=== PATIENT | male | born 1930 | race Caucasian/White ===

== ENCOUNTER 2017-05-13 14:08 | Inpatient (IN) ==
[2017-05-13] MEDS ORDERED: ZOFRAN IV PRN (14:37)
--- NOTE | 2017-05-13 14:47 | Diag Imaging Result Doc PS360 ---
EXAM: CHEST-2 VIEWS INDICATION: dyspnea TECHNIQUE: 2 views COMPARISON: 05/26/2014 FINDINGS: The lungs are grossly clear. There is no discrete pleural fluid collection or pneumothorax. The cardiomediastinal silhouette and central vasculature are grossly unremarkable. IMPRESSION: No evidence of acute pathology by plain radiograph. Electronically signed by Jethro Bhagat 05/13/2017 2:45 PM
[2017-05-13 14:52] LABS: MANUAL DIFF NEEDED? NO
[2017-05-13 14:56] LABS: BASO% 0.1 % (0.0-0.8); EOS# 0.01 X1000 (0.0-0.7); EOS% 0.1 % (0.0-10.0); HEMATOCRIT 39.5 % (42.0-52.0); HEMOGLOBIN 13.9 g/dL (14.0-18.0); IMM GRAN# 0.01 X1000 (0.0-0.04); IMM GRAN% 0.1 % (0.0-0.5); LYMPH# 1.18 X1000 (1.2-3.4); LYMPH% 10.5 % (20.5-51.1); MCH 30.3 PG (27-31); MCHC 35.2 g/dL (33-37); MCV 86.1 FL (81-99); MONO# 0.99 X1000 (0.11-0.59); MONO% 8.8 % (1.7-9.3); MPV 11.1 FL (7.4-10.4); NEUT% 80.4 % (42.2-75.2); PLT 181 X1000 (130-400); RBC 4.59 XMIL (4.7-6.1)
[2017-05-13] MEDS ORDERED: SODIUM CHLORIDE 0.9% INJ SCH (15:00)
[2017-05-13 15:20] LABS: AGAP 12; ALBUMIN 4.4 g/dL (3.5-5.0); ALKALINE PHOSPHATASE 120 U/L (32-122); BUN 11 mg/dL (8-22); CALCIUM 9.8 mg/dL (8.8-10.2); CHLORIDE 98 mmol/L (98-107); COSMO 271; GOT 14 U/L (10-34); GPT 10 U/L (10-44); POTASSIUM 3.7 mmol/L (3.5-5.1); SODIUM 135 mmol/L (136-145); TCO2 25 mmol/L (25-35); TOTAL PROTEIN 7.8 g/dL (6.3-8.3)
[2017-05-13] MEDS: PROTONIX IV SCH (16:24)
[2017-05-13] MEDS: NS 1,000 ML IV SCH (16:24)
[2017-05-13] MEDS ORDERED: TYLENOL PO PRN (16:32)
--- NOTE | 2017-05-13 17:02 | HISTORY AND PHYSICAL ---
CHIEF COMPLAINT: Extreme weakness and vomiting. PRESENT ILLNESS: This is the 1st recent [facility] admission for this 86-year-old white man who presented to the office this morning with history of vomiting since 4 a.m. today. He had no nausea prior to that time. He has had no fever, and his has not had nausea or abdominal discomfort. He denied eating unusual type of food last night or eating out. Family also indicated that he has had some progressive memory problems and also insomnia. There is significance of at least 35 pound weight loss over the last 6 months. He had lumbar back surgery a couple of months ago after conservative treatment failed. He was given the option of treating the gastritis symptoms at home and calling tomorrow to see if he was improved to determine hospitalization. After returning home, the family had a discussion with the patient and decision was made to put him in the hospital for evaluation and control the nausea. PAST MEDICAL HISTORY: Recent lumbar back surgery. PRESENT MEDICATIONS: Gabapentin 300 mg at bedtime, metoclopramide 10 mg t.i.d., ropinirole 1 at bedtime. ALLERGIES: Celebrex. REVIEW OF SYSTEMS: Significant for weight loss and anorexia. He has had no significant cough or shortness of breath. He has had no melena, no hemoptysis, and no hematemesis. SOCIAL HISTORY: No recent smoking or alcohol usage. He lives at home with his . FAMILY HISTORY: Unremarkable except for some hypertension. PHYSICAL EXAMINATION: VITAL SIGNS: Temperature 98.6 degrees, rate 87, respirations 16, blood pressure 157/68, O2 saturation on room air 100%. GENERAL: He seems to be feeling a little better now than in the office after a short nap. He denies nausea. He has taken some liquids p.o. without vomiting. HEENT: Pupils equal, round, and reactive to light. Pharynx benign with no erythema or exudate. NECK: Supple with no mass or lymphadenopathy. HEART: Regular in rate and rhythm with no murmur, rub or gallop. LUNGS: Clear with no rales or rhonchi. ABDOMEN: Soft with no mass, tenderness, or organomegaly. EXTREMITIES: No cyanosis, clubbing, or edema. There is a lumbar scar secondary to recent surgery. RECTAL AND GENITALIA: Deferred. IMPRESSION: Acute gastritis, moderate recent weight loss of undetermined etiology. PLAN: Admit for control of nausea and for workup of weight loss. cc: Aston Irving MD
--- NOTE | 2017-05-13 19:00 | Diag Imaging Result Doc PS360 ---
EXAM: CT ABD/PELVIS W/PO AND IV CON HISTORY: weightloss TECHNIQUE: CT abdomen and pelvis with intravenous contrast. Dose reduction protocol. COMPARISON: 05/26/2014 FINDINGS: There is a large amount of motion throughout the exam blurring the images. The gallbladder is distended. No calcified stones. There are small scattered hepatic cysts. Normal spleen, pancreas, and adrenal glands. There are small scattered renal cysts. No hydronephrosis. Prominent atherosclerosis. No aneurysmal dilatation to the aorta. No bowel obstruction. No inflammation about the cecum. No abscess. The urinary bladder is moderately distended and appears normal. There has been extensive surgery to the lower lumbar spine. IMPRESSION: Suboptimal exam due to patient motion. 1. There are scattered hepatic and renal cysts 2. Prominent atherosclerosis Electronically signed by Moshe Hsu 05/13/2017 6:58 PM
[2017-05-13] MEDS ORDERED: SEROQUEL PO SCH (21:00)
[2017-05-14] MEDS: NS 1,000 ML IV SCH ×2 (05:14→11:42)
--- NOTE | 2017-05-14 08:39 | PROGRESS NOTE ---
DATE: 05/14/2017 OBJECTIVE: Vital Signs: Stable with temperature 98.8 degrees, rate 105, respirations 18, blood pressure 110/47, O2 saturation on room air 100%. DIAGNOSTIC DATA: CT scan of his abdomen with and without contrast revealed some hepatic and renal cysts. Otherwise unremarkable. There was some motion interference with reading, but not significant. He had a bladder scan this morning revealing 200 mL residual. A Gill was planned, but canceled. SUBJECTIVE: He has had no further vomiting. ASSESSMENT AND PLAN: Diet will be increased. Activity will be increased. If he continues to have difficulty voiding, a Gill will be placed. If he does well before this afternoon, he may be able to go home today. cc: Aston Irving MD
[2017-05-14 12:03] LABS: URINE SOURCE VOIDED
[2017-05-14 12:13] LABS: BILIRUBIN URINE NEGATIVE (NEGATIVE); BLOOD URINE TRACE (NEGATIVE); CLARITY CLEAR (CLEAR); COLOR YELLOW; GLUCOSE URINE NEGATIVE (NEGATIVE); LEUKOCYTES URINE TRACE (NEGATIVE); NITRITE URINE NEGATIVE (NEGATIVE); PH URINE 6.5; PROTEIN URINE 1+(30 mg/dL) mg/dL (NEGATIVE); SP GRAVITY URINE 1.005; URINE MICROSCOPIC NEEDED? YES; UROBILINOGEN URINE NORMAL
[2017-05-14 12:27] LABS: URINE EPITHELIAL CELLS <10 /HPF (<10)
[2017-05-14] MEDS: PROTONIX IV SCH (15:37)
[2017-05-14 16:05] VITALS: BP 133/57
[2017-05-14] MEDS ORDERED: MACROBID PO SCH (21:00)
--- NOTE | 2017-05-15 08:35 | DISCHARGE SUMMARY ---
ADMISSION DATE: 05/13/2017 DISCHARGE DATE: 05/14/2017 FINAL DIAGNOSES: 1. Acute gastritis. 2. Acute cystitis. 3. Weight loss related to chronic back pain and other factors. DISCHARGE MEDICATIONS: Macrobid 100 mg (20) 1 b.i.d., Seroquel 50 mg (14) 1 at bedtime for sleep, and usual medications including ropinirole, Tylenol, and p.o. Zofran p.r.n. This is the first recent [facility] admission for this 86-year-old white man with weight loss of about 35 pounds in 6 months who had recent back surgery. He presented to the office with nausea and vomiting. There was no hematemesis, and no history of melena. INITIAL LABORATORY: Hemoglobin 13.9, hematocrit 39.5. White blood count 11,200, with 80% neutrophils. Sodium 135, potassium 3.7, BUN 11, creatinine 0.6, glucose 130. TSH 1.38. Liver functions normal. HOSPITAL COURSE: He was given IV Zofran with benefit and nausea resolved by the day after admission. Diet was increased. He had some oliguria initially, but was able to go to the bathroom this afternoon. He states he does not have urinary hesitancy. He continues to have suprapubic abdominal pain, otherwise no complaints. He has been ambulatory this afternoon. He is discharged home on the above medications to be seen in the office in 1 week for followup. cc: Aston Irving MD
== END 2017-05-14 17:37 | disposition home or self-care (01) ==
LOC: P.DIRADM 14:08 → P.MEDSURG 14:16
PROVIDERS: ADMIT Family Medicine; ATTEND Family Medicine

== ENCOUNTER 2017-05-18 15:23 | Inpatient (IN) ==
[2017-05-18] MEDS ORDERED: PROZAC PO ONE (16:53)
[2017-05-18 16:55] LABS: MANUAL DIFF NEEDED? NO
[2017-05-18 17:01] LABS: BASO% 0.3 % (0.0-0.8); EOS# 0.16 X1000 (0.0-0.7); HEMATOCRIT 34.9 % (42.0-52.0); HEMOGLOBIN 12.6 g/dL (14.0-18.0); IMM GRAN# 0.05 X1000 (0.0-0.04); IMM GRAN% 0.6 % (0.0-0.5); LYMPH# 0.42 X1000 (1.2-3.4); LYMPH% 5.3 % (20.5-51.1); MCH 30.5 PG (27-31); MCHC 36.1 g/dL (33-37); MCV 84.5 FL (81-99); MONO# 0.65 X1000 (0.11-0.59); MONO% 8.2 % (1.7-9.3); MPV 10.9 FL (7.4-10.4); NEUT% 83.6 % (42.2-75.2); PLT 140 X1000 (130-400); RBC 4.13 XMIL (4.7-6.1)
[2017-05-18 17:10] LABS: AGAP 12; BUN 10 mg/dL (8-22); CALCIUM 8.9 mg/dL (8.8-10.2); CHLORIDE 94 mmol/L (98-107); COSMO 258; POTASSIUM 2.9 mmol/L (3.5-5.1); SODIUM 129 mmol/L (136-145); TCO2 23 mmol/L (25-35)
[2017-05-18] MEDS: D5 1/2 NS 1,000 ML IV SCH (18:10)
[2017-05-18] MEDS: SOLU-MEDROL IV SCH (18:10)
[2017-05-18] MEDS: TYLENOL PO PRN (18:10)
[2017-05-18 18:28] LABS: CLARITY CLEAR (CLEAR); COLOR AMBER; URINE SOURCE VOIDED
[2017-05-18 18:29] LABS: BILIRUBIN URINE NEGATIVE (NEGATIVE); BLOOD URINE NEGATIVE (NEGATIVE); GLUCOSE URINE NEGATIVE (NEGATIVE); LEUKOCYTES URINE TRACE (NEGATIVE); NITRITE URINE NEGATIVE (NEGATIVE); PH URINE 6.5; PROTEIN URINE 2+(100 mg/dL) mg/dL (NEGATIVE); URINE CAST GRANULAR PRESENT /LPF; URINE CRYSTAL NONE SEEN /HPF; URINE EPITHELIAL CELLS >10 /HPF (<10); URINE MICROSCOPIC NEEDED? YES; URINE RBC <10 /HPF (<10); URINE WBC <10 /HPF (<10); UROBILINOGEN URINE 1+(1 mg/dL)
[2017-05-18] MEDS: POTASSIUM CHLORIDE 20 MEQ/SWI 20 MEQ/100 ML IVPB IV SCH ×2 (19:49→21:44)
--- NOTE | 2017-05-18 20:51 | HISTORY AND PHYSICAL ---
CHIEF COMPLAINT: Extreme weakness, anorexia. PRESENT ILLNESS: This is the second recent [facility] admission for this 86-year-old white man, who was admitted to [facility] 05/13 to 05/14 with final diagnoses acute gastritis, acute cystitis, and weight loss due to chronic back pain and other factors. He was discharged home with Macrobid, Seroquel at bedtime and usual medications, including ropinirole, Tylenol and Zofran p.r.n. Initial laboratory during that admission was BUN of 11, creatinine 0.6, glucose 130, TSH 1.38. Liver enzymes were normal. Hematocrit was 39.5. White blood count 11,200. He was found to have 10-15 WBCs per high-powered field and started on Macrobid p.o. He became progressively weaker over the past few days. He has not been eating, drinking, and urine output has been decreasing. Urine output on 05/16 was 18 ounces, on 05/17, 29 ounces and by midday today 6 ounces. He denies nausea, but is unable to eat. There is no trouble swallowing. Affect is somewhat depressed. Option was given for him to go home with medicine or be placed in the hospital. He chose hospitalization. He was too weak to stand without assistance. PAST MEDICAL HISTORY: Fairly recent lumbar back surgery. He has had no subsequent radiculopathy and back pain is improved. PRESENT MEDICATIONS: As above. ALLERGIES: Celebrex. REVIEW OF SYSTEMS: Additional weight loss of 4 pounds since his last admission. The 02/25, he weighed 135 pounds. He weighs 116 today. He weighed 160 pounds a few months ago. He has had no hematochezia or melena. Chest x-ray during his most recent admission showed no infiltrate. CT scan of his abdomen revealed no mass. SOCIAL HISTORY: Lives with his . He denies recent smoking or alcohol usage. PHYSICAL EXAMINATION: VITAL SIGNS: Temperature 99.1 degrees, heart rate 106, respirations 18, blood pressure 151/64, O2 saturation 99% on room air. Height 5 feet 5 inches, weight on hospital scale was 124. GENERAL: Patient is a weak elderly white man with general malaise. There is mild depressed affect. HEENT: Pupils equal, round, and reactive to light. Tympanic membranes without inflammation. Pharynx benign with no erythema or exudate. NECK: Supple with no mass or lymphadenopathy. HEART: Regular in rate and rhythm with no murmur, rub or gallop. LUNGS: Clear with no rales or rhonchi. ABDOMEN: Soft with no mass, tenderness, or organomegaly. EXTREMITIES: No cyanosis, clubbing, or edema. RECTAL: In the office revealed normal-sized prostate without mass. Hemoccult was negative. IMPRESSION: Dehydration, anorexia, hyponatremia, hypokalemia, depression, extreme weakness with inability to walk. PLAN: Admit for further evaluation and treatment. Physical therapy will be asked to assist in ambulation. He may need rehab at discharge. cc: Aston Irving MD
[2017-05-18] MEDS: MEGACE PO SCH (21:29)
[2017-05-19] MEDS: D5 1/2 NS 1,000 ML IV SCH ×3 (00:50→14:21)
[2017-05-19] MEDS: SOLU-MEDROL IV SCH ×2 (04:09→16:26)
[2017-05-19] MEDS: PROZAC PO SCH (08:44)
[2017-05-19] MEDS: MEGACE PO SCH ×2 (08:44→21:10)
[2017-05-19] MEDS: KLOR-CON PO SCH ×3 (08:44→16:25)
[2017-05-19] MEDS: TYLENOL PO PRN (08:47)
--- NOTE | 2017-05-19 09:48 | Diag Imaging Result Doc PS360 ---
EXAM: CHEST-PORTABLE HISTORY: fever, dyspnea TECHNIQUE: Single view of the chest was performed portably. COMPARISON: 05/13/2017 FINDINGS: The cardiomediastinal silhouette is within normal limits. The pulmonary vasculature is not congested. No infiltrate, effusion, or pneumothorax is appreciated. IMPRESSION: No acute cardiopulmonary abnormality is identified. Electronically signed by Tiffanie Burns 05/19/2017 9:46 AM
[2017-05-19] MEDS: NS 1,000 ML IV SCH (18:25)
[2017-05-19] MEDS ORDERED: ATIVAN PO SCH (21:00)
[2017-05-20] MEDS: SOLU-MEDROL IV SCH ×2 (05:01→17:44)
[2017-05-20 06:16] LABS: AGAP 11; BUN 9 mg/dL (8-22); CHLORIDE 99 mmol/L (98-107); COSMO 263; POTASSIUM 3.3 mmol/L (3.5-5.1); SODIUM 131 mmol/L (136-145); TCO2 21 mmol/L (25-35)
[2017-05-20] MEDS: MEGACE PO SCH (08:15)
[2017-05-20] MEDS: PROZAC PO SCH (08:15)
[2017-05-20] MEDS: NS 1,000 ML IV SCH (08:15)
[2017-05-20] MEDS: KLOR-CON PO SCH ×3 (08:16→17:43)
[2017-05-20] MEDS: POTASSIUM CHLORIDE 20 MEQ/SWI 20 MEQ/100 ML IVPB IV SCH ×2 (08:35→11:11)
--- NOTE | 2017-05-20 08:44 | PROGRESS NOTE ---
DATE: 05/20/2017 VITAL SIGNS: Stable with temperature 97.6 degrees, heart rate 87, respirations 18, blood pressure 153/67, O2 saturation on room air is 99%. LABORATORY: Sodium 131, potassium 3.3, BUN 9, creatinine 0.4, glucose 122, calcium 8. SUBJECTIVE: Patient slept well last night and is eating fairly well. He ambulated last night to the nurses' desk and has ambulated with physical therapy. IMPRESSION AND PLAN: He is wanting to go home but may need rehab for strengthening to prevent recurrent hospitalization. Discussion will be made with the family this evening and decision made for home versus rehab tomorrow. cc: Aston Irving MD
[2017-05-20] MEDS ORDERED: VITAMIN D PO SCH (09:00)
[2017-05-20 16:14] VITALS: BP 156/64
--- NOTE | 2017-05-20 18:14 | DISCHARGE SUMMARY ---
ADMISSION DATE: 05/18/2017 DISCHARGE DATE: 05/20/2017 FINAL DIAGNOSES: Dehydration, anorexia, extreme weakness, hyponatremia, hypokalemia, depression. DISCHARGE MEDICATION: Lorazepam 1 mg at bedtime for sleep, Megace 40 mg b.i.d. for appetite, fluoxetine 20 mg 1 daily, vitamin D 3 2000 units daily, and Tylenol p.r.n. pain. HISTORY: This is the second fairly recent admission for this 86-year-old white man, who had been admitted for gastritis and cystitis sent home with nitrofurantoin. Urinalysis on admission revealed less than 10 WBCs per high-powered field. Urine culture revealed no growth. Vitamin D 25 hydroxy level was low at 16.6. Testosterone level was normal. Sodium was low at 129. Potassium 2.9. BUN 10. Creatinine 0.4, glucose 102, calcium 8.9, amylase 30. HOSPITAL COURSE: He was hydrated and given Megace, and fluoxetine. There seemed to be improvement over a couple of days and appetite improved, except he did not eat much supper this evening because of not liking the hospital food. He has been ambulatory the last couple of days and feeling better. Discussion was made with the patient and family concerning rehab, but the patient desired to go home. DISPOSITION: He is discharged home on the above medications with home health to be seen back in the home health nursing care. FOLLOWUP: He is to be seen back in the office in 1 week for followup. cc: Aston Irving MD
== END 2017-05-20 18:52 | disposition home health service (06) ==
LOC: P.DIRADM 15:23 → P.MEDSURG 15:28
PROVIDERS: ADMIT Family Medicine; ATTEND Family Medicine

== ENCOUNTER 2017-05-24 09:34 | Inpatient (IN) ==
[2017-05-24] MEDS ORDERED: TYLENOL PO PRN (10:14)
[2017-05-24 11:23] LABS: AGAP 11; BUN 14 mg/dL (8-22); CALCIUM 8.3 mg/dL (8.8-10.2); CHLORIDE 100 mmol/L (98-107); COSMO 270; SODIUM 134 mmol/L (136-145); TCO2 23 mmol/L (25-35)
[2017-05-24] MEDS: D5 1/2 NS + KCL 10 MEQ 1,000 ML IV SCH ×2 (11:30→18:31)
[2017-05-24] MEDS: POTASSIUM CHLORIDE 20 MEQ/SWI 20 MEQ/100 ML IVPB IV SCH ×2 (13:29→15:29)
[2017-05-24] MEDS: KLOR-CON PO SCH ×2 (13:29→16:48)
[2017-05-24] MEDS ORDERED: DEPO-TESTOSTERONE IM ONE (16:00)
--- NOTE | 2017-05-24 16:10 | HISTORY AND PHYSICAL ---
CHIEF COMPLAINT: Extreme weakness and anorexia. PRESENT ILLNESS: This is the third, fairly-recent admission for this 86-year-old white man, with generalized weakness and anorexia, who was encouraged his last admission to go to rehab, but chose to go home. Chest x-ray, laboratory, and CT of his abdomen revealed no significant abnormality, but sodium and potassium were low last admission. BUN was 14 and creatinine 0.6 this morning, but skin turgor is decreased and he is volume depleted. He is admitted for rehydration, correction of low potassium, and for additional evaluation. Rehab will be considered at the and of this admission. 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 This could explain some of his weakness. He also was found to have low vitamin D, and is given p.o. vitamin D daily. PAST MEDICAL HISTORY: Recent hospitalizations for gastritis and cystitis, then for dehydration, hypokalemia and hyponatremia. He became weaker over the weekend, but has had no vomiting. He has had some loose bowel movements, but no bowel movement for a couple days. He has had no melena. PAST SURGICAL HISTORY: Recent lumbar back surgery. He does not complain of back pain at this time. PRESENT MEDICATIONS: Tylenol p.r.n. pain, vitamin D at 2000 units daily, fluoxetine 20 mg once daily, lorazepam 1 mg at bedtime, Megace 40 mg b.i.d. ALLERGIES: Celebrex. REVIEW OF SYSTEMS: A 5-pound weight loss in the last week and anorexia. He ate well for 1 day after returning home from the last hospitalization. He was ambulatory before last discharge. He is very weak and needing assistance to stand and walk today. FAMILY HISTORY: Unremarkable. SOCIAL HISTORY: He is and lives at home with his . He denies recent smoking or alcohol usage. PHYSICAL EXAMINATION: VITAL SIGNS: Temperature 97.6 degrees, heart rate 91, respirations 18, blood pressure 147/68. His blood pressure in the office was 90/60. O2 saturation 100% on room air. Weight 112 pounds, height 5 feet 5 inches. GENERAL: The patient is a well-developed, poorly-nourished, weak, thin, plan elderly male in no apparent distress. HEENT: Pupils equal, round, and reactive to light. Tympanic membranes without inflammation. Pharynx benign. NECK: Supple, with no mass or lymphadenopathy. HEART: Regular in rate and rhythm with no murmur, rub, or gallop. LUNGS: Clear, with no rales or rhonchi. ABDOMEN: Soft, with no mass, tenderness, or organomegaly. EXTREMITIES: No cyanosis, clubbing, or edema. RECTAL AND GENITALIA: Deferred. IMPRESSION: 1. Extreme weakness. 2. Anorexia. 3. Weight loss. 4. Hypokalemia. PLAN: Admit for further evaluation and treatment. cc: Aston Irving MD
[2017-05-24] MEDS: SOLU-MEDROL IV SCH (17:27)
[2017-05-24] MEDS: ATIVAN PO SCH (21:16)
[2017-05-24] MEDS: MEGACE PO SCH (21:16)
[2017-05-25] MEDS: D5 1/2 NS + KCL 10 MEQ 1,000 ML IV SCH ×3 (01:42→17:01)
[2017-05-25 06:16] LABS: MANUAL DIFF NEEDED? NO
[2017-05-25 06:24] LABS: BASO% 0.2 % (0.0-0.8); HEMATOCRIT 33.2 % (42.0-52.0); HEMOGLOBIN 11.7 g/dL (14.0-18.0); IMM GRAN# 0.02 X1000 (0.0-0.04); IMM GRAN% 0.3 % (0.0-0.5); LYMPH# 0.95 X1000 (1.2-3.4); LYMPH% 16.6 % (20.5-51.1); MCH 29.5 PG (27-31); MCHC 35.2 g/dL (33-37); MCV 83.6 FL (81-99); MONO# 0.39 X1000 (0.11-0.59); MONO% 6.8 % (1.7-9.3); MPV 9.8 FL (7.4-10.4); NEUT% 76.1 % (42.2-75.2); PLT 235 X1000 (130-400); RBC 3.97 XMIL (4.7-6.1)
[2017-05-25] MEDS: SOLU-MEDROL IV SCH ×2 (06:39→17:01)
--- NOTE | 2017-05-25 08:20 | PROGRESS NOTE ---
DATE: 05/25/2017 OBJECTIVE: Vital signs: Stable with temperature 98.4 degrees, heart rate 84, respirations 16, blood pressure 134/59, O2 saturation on room air 97%. LABORATORY: Potassium 4.0, hemoglobin 11.7, hematocrit 33.2, white blood count 5700 with 76% neutrophils. He feels a little better this morning. There is no nausea. Appetite is improving. PLAN: Ambulate with physical therapy, rehab at discharge. cc: Aston Irving MD
[2017-05-25] MEDS: KLOR-CON PO SCH ×3 (09:05→17:01)
[2017-05-25] MEDS: PROZAC PO SCH (09:05)
[2017-05-25] MEDS: VITAMIN D PO SCH (09:05)
[2017-05-25] MEDS: MEGACE PO SCH ×2 (09:06→21:35)
[2017-05-25] MEDS: ATIVAN PO SCH (21:36)
[2017-05-25 21:43] LABS: URINE CULTURE PL NEEDED? NO
[2017-05-25 22:05] LABS: BILIRUBIN URINE NEGATIVE (NEGATIVE); BLOOD URINE NEGATIVE (NEGATIVE); CLARITY CLEAR (CLEAR); COLOR YELLOW; GLUCOSE URINE NEGATIVE (NEGATIVE); LEUKOCYTES URINE NEGATIVE (NEGATIVE); NITRITE URINE NEGATIVE (NEGATIVE); PH URINE 6.5; PROTEIN URINE NEGATIVE (NEGATIVE); UROBILINOGEN URINE NORMAL
[2017-05-25 22:24] LABS: URINE EPITHELIAL CELLS <10 /HPF (<10); URINE WBC <10 /HPF (<10)
[2017-05-25 22:25] LABS: URINE RBC <10 /HPF (<10)
[2017-05-25 22:26] LABS: URINE SOURCE CLEAN CATCH
[2017-05-26] MEDS: SOLU-MEDROL IV SCH (05:45)
[2017-05-26 06:34] LABS: AGAP 10; BUN 10 mg/dL (8-22); CALCIUM 8.4 mg/dL (8.8-10.2); CHLORIDE 100 mmol/L (98-107); COSMO 262; POTASSIUM 3.9 mmol/L (3.5-5.1); SODIUM 131 mmol/L (136-145); TCO2 21 mmol/L (25-35)
[2017-05-26] MEDS: MEGACE PO SCH ×2 (09:59→21:13)
[2017-05-26] MEDS: PROZAC PO SCH (09:59)
[2017-05-26] MEDS: KLOR-CON PO SCH ×3 (09:59→16:24)
[2017-05-26] MEDS: VITAMIN D PO SCH (09:59)
--- NOTE | 2017-05-26 10:19 | PROGRESS NOTE ---
DATE: 05/26/2017 VITAL SIGNS: Stable with temperature 98.7 degrees, heart rate 87, respirations 18, blood pressure 140/68, O2 saturation on room air 100%. LABORATORY DATA: Sodium 131, potassium 3.9, BUN 10, creatinine 0.4, calcium 8.4. IMPRESSION: Appetite is improving and he is ambulatory with assistance. PLAN: Continue physical therapy and hopefully transfer to rehab tomorrow. cc: Aston Irving MD
[2017-05-26] MEDS: NS 1,000 ML IV SCH (16:24)
[2017-05-26] MEDS: PREDNISONE PO SCH (21:13)
[2017-05-26] MEDS: ATIVAN PO SCH (21:13)
[2017-05-27] MEDS: MEGACE PO SCH (08:45)
[2017-05-27] MEDS: VITAMIN D PO SCH (08:45)
[2017-05-27] MEDS: PROZAC PO SCH (08:45)
[2017-05-27] MEDS: KLOR-CON PO SCH ×3 (08:45→16:17)
[2017-05-27] MEDS: PREDNISONE PO SCH (08:45)
[2017-05-27] MEDS: NS 1,000 ML IV SCH (08:50)
[2017-05-27] MEDS ORDERED: HEMOCYTE PLUS CAPSULE PO SCH (09:00)
[2017-05-27 11:55] VITALS: BP 95/49
--- NOTE | 2017-05-27 11:55 | DISCHARGE SUMMARY ---
ADMISSION DATE: 05/24/2017 DISCHARGE DATE: 05/27/2017 FINAL DIAGNOSES: 1. Failure to thrive. 2. Dehydration. 3. Hypokalemia. 4. Anemia. 5. Anorexia. 6. Moderate weight loss. 7. Depression. DISCHARGE MEDICATIONS: Usual medication at home plus prednisone 10 mg p.o. b.i.d. This is the 3rd recent admission to [facility] for this 86-year-old white man with anorexia and weakness. He was unable to walk without assistance. He was admitted for hydration and further evaluation. INITIAL LABORATORY: Sodium 134, potassium 3.0, BUN 14, creatinine 0.6, calcium 8.3, magnesium 2.2, glucose 117. HOSPITAL COURSE: After hydration and intravenous Solu-Medrol his appetite improved. He was assisted with ambulation by physical therapy. He has become a little stronger over the past few days. Rehab was planned, but because the admission was not accepted as inpatient, this was not possible. Also, [facility]. Therefore he is sent home again hopefully to be able to remain. Initial plans were to discharge home with home health and physical therapy. [facility] He is transferred to rehab. He will follow up with me in the office a few days after discharge from rehab. . cc: Aston Irving MD MTDD
== END 2017-05-27 16:17 ==
LOC: P.DIRADM 09:34 → P.MEDSURG 09:45
PROVIDERS: ADMIT Family Medicine; ATTEND Family Medicine